=== PATIENT | female | born 1995 | race Caucasian/White ===

== ENCOUNTER 2024-09-12 10:33 | Emergency (ER) | payer MEDICARE, OTHER ==
[2024-09-12] MEDS: ACETAMINOPHEN TAB 500 MG TAB PO STA (10:51)
--- NOTE | 2024-09-12 10:51 | ED ---
General Adult HPI - General Chief complaint: Fall Stated complaint: fall Time Seen by Provider: 09/12/24 10:40 Source: patient, EMS, RN notes reviewed Mode of arrival: EMS Limitations: no limitations - History of Present Illness Initial comments: Patient is a 29-year-old female presenting to the emergency department from [place] secondary to a fall. Patient was sitting in a chair when it broke. Patient fell back and did strike the back of her head. No loss of consciousness. Only mild discomfort. No nausea or vomiting. No confusion. No weakness. Patient does not take blood thinners. Patient is at [place] secondary to cocaine use. Patient has been there for 2 days now. Patient does have some back discomfort however has chronic back discomfort. Patient originally denies any abdominal discomfort however states there is some lower abdominal/pelvic discomfort during exam. No vaginal bleeding or discharge - Related Data Allergies Allergy/AdvReac Type Severity Reaction Status Date / Time cephalexin [From Keflex] Allergy Swelling Verified 09/12/24 10:43 doxycycline Allergy Swelling Verified 09/12/24 10:43 nitrofurantoin Allergy Swelling Verified 09/12/24 10:43 [From Macrobid] Review of Systems ROS Statement: Those systems with pertinent positive or pertinent negative responses have been documented in the HPI. ROS Other: All systems not noted in ROS Statement are negative. Constitutional: Denies: fever Eyes: Denies: eye pain ENT: Denies: ear pain Respiratory: Denies: dyspnea Cardiovascular: Denies: chest pain Gastrointestinal: Reports: as per HPI Genitourinary: Denies: dysuria Musculoskeletal: Reports: back pain Neurological: Denies: weakness, numbness, paresthesias, confusion Past Medical History Past Medical History: Fibromyalgia, GERD/Reflux Additional Past Medical History / Comment(s): IBS Past Surgical History: No Surgical Hx Reported Smoking Status: Current every day smoker Past Alcohol Use History: None Reported Past Drug Use History: Cocaine, Marijuana General Exam Limitations: no limitations General appearance: alert, in no apparent distress Head exam: Present: atraumatic, normocephalic Eye exam: Present: normal appearance, PERRL, EOMI Neck exam: Present: normal inspection. Absent: tenderness Respiratory exam: Present: normal lung sounds bilaterally Cardiovascular Exam: Present: regular rate, normal rhythm, normal heart sounds GI/Abdominal exam: Present: soft, tenderness (Mild suprapubic tenderness). Absent: distended, guarding, rebound, rigid Extremities exam: Present: normal inspection, full ROM. Absent: tenderness Back exam: Present: normal inspection. Absent: tenderness, CVA tenderness (R), CVA tenderness (L), paraspinal tenderness, vertebral tenderness Neurological exam: Present: alert, CN II-XII intact. Absent: motor sensory deficit Expanded Neurological exam: Present: protecting the airway Speech: Present: fluid speech Cranial nerves: EOM's Intact: Normal Motor strength exam: RUE: 5, LUE: 5, RLE: 5, LLE: 5 Eye Response: (4) open spontaneously Motor Response: (6) obeys commands Verbal Response: (5) oriented Psychiatric exam: Present: normal affect, normal mood Skin exam: Present: normal color Course Vital Signs 09/12/24 10:37 Temperature 98.1 F Pulse Rate 65 Respiratory 16 Rate Blood Pressure 97/58 O2 Sat by Pulse 100 Oximetry Medical Decision Making - Medical Decision Making Was pt. sent in by a medical professional or institution (Dr. PA, TRIM CREW SUPERVISOR, urgent care, hospital, or [place] [facility] facility...) When possible be specific @ -Patient was sent from [place] Did you speak to anyone other than the patient for history (EMS, parent, family, police, friend...)? What history was obtained from this source @ -No Did you review nursing and triage notes (agree or disagree)? Why? @ -I reviewed and agree with nursing and triage notes Were old charts reviewed (outside hosp., previous admission, EMS record, old EKG, old radiological studies, urgent care reports/EKG's, [place] health care facility records)? Report findings @ -Chart reviewed from [place] Differential Diagnosis (chest pain, altered mental status, abdominal pain women, abdominal pain men, vaginal bleeding, weakness, fever, dyspnea, syncope, headac he, dizziness, GI bleed, back pain, seizure, CVA, palpatations, mental health, musculoskeletal)? @ -Differential Musculoskeletal Muscular strain, contusion, ligament sprain, fracture, arthritis, septic arthritis, bursitis, cellulitis, muscle spasm, nerve compression, DVT, arterial occlusion, herpes zoster, electrolyte abnormality, tumor.... This is not meant to be in all inclusive list EKG interpreted by me (3pts min.). @ -As above X-rays interpreted by me (1pt min.). @ -None done CT interpreted by me (1pt min.). @ -None done U/S interpreted by me (1pt. min.). @ -Ultrasound shows intrauterine What testing was considered but not performed or refused? (CT, X-rays, U/S, labs)? Why? @ -Considered additional imaging of the back however patient has no tenderness. Considered imaging of the brain however patient does not meet criteria, no neurological symptoms, no severe headache, no loss of consciousness. No nausea or vomiting. Normal exam. What meds were considered but not given or refused? Why? @ -None Did you discuss the management of the patient with other professionals (professionals i.e. , PA, TRIM CREW SUPERVISOR, lab, RT, psych nurse, social sciences professor, field marketing director, teacher, chief lending officer, protective services case worker)? Give summary @ -No Was smoking cessation discussed for >3mins.? @ -No Was critical care preformed (if so, how long)? @ -No Were there social determinants of health that impacted care today? How? (Homelessness, low income, unemployed, alcoholism, drug addiction, transportation, low edu. Level, literacy, decrease access to med. care, usp, rehab)? @ -No Was there de-escalation of care discussed even if they declined (Discuss DNR or withdrawal of care, Hospice)? DNR status @ -No What co-morbidities impacted this encounter? (DM, HTN, Smoking, COPD, CAD, Cancer, CVA, ARF, Chemo, Hep., AIDS, mental health diagnosis, sleep apnea, morbid obesity)? @ -History of being at rehab for cocaine use. Also recent current Was patient admitted / discharged? Hospital course, mention meds given and route, prescriptions, significant lab abnormalities, going to OR and other pertinent info. @ -Patient presents with a fall. Patient complains of some back discomfort and head injury. Patient has mild discomfort of her abdomen on exam, otherwise exam unremarkable. Ultrasound unremarkable. Patient will be discharged and recommended follow-up Undiagnosed new problem with uncertain prognosis? @ -No Drug Therapy requiring intensive monitoring for toxicity (Heparin, Nitro, Insulin, Cardizem)? @ -No Were any procedures done? @ -No Diagnosis/symptom? @ -Fall Acute, or Chronic, or Acute on Chronic? @ -Acute Uncomplicated (without systemic symptoms) or Complicated (systemic symptoms)? @ -Default Side effects of treatment? @ -No Exacerbation, Progression, or Severe Exacerbation? @ -No Poses a threat to life or bodily function? How? (Chest pain, [place], [place], pneumonia, PE, COPD, DKA, ARF, appy, cholecystitis, CVA, Diverticulitis, Homicidal, Suicidal, threat to staff... and all critical care pts) @ -No Disposition Clinical Impression: Fall, Head contusion, Pelvic pain Disposition: HOME SELF-CARE Condition: Stable Instructions (If sedation given, give patient instructions): Fall Prevention (ED), at 11 to 14 Weeks (ED) Additional Instructions: [id number] Tylenol as needed. Please do follow-up with primary care physician and SEW[employer]ER in the next couple of days for recheck. Return for confusion, weakness, persistent vomiting, increased pain, vaginal bleeding, worsening symptoms or any other concerns. Is patient prescribed a controlled substance at d/c from ED?: No Referrals: None,Stated [Primary Care Provider] - 1-2 days Lashay Ortiz DO [Doctor of Osteopathic Medicine] - 1-2 days Jeremías De Anda MD [STAFF PHYSICIAN] - 1-2 days Forms: PH Area PCPs Time of Disposition: 12:28
--- NOTE | 2024-09-12 11:50 | US ---
EXAMINATION TYPE: Ultrasound OB <= 14 week fetus DATE OF EXAM: 09/12/2024 11:13 AM COMPARISON: NONE CLINICAL INDICATION: Female, 29 years old with pain after history of fall; [facility] TECHNIQUE: Transabdominal (TA) with grayscale and color Doppler imaging including first trimester pre gnancy. FINDINGS: EXAM MEASUREMENTS: GESTATIONAL AGE / DATING Physician Established: Not yet established Dates by LMP: LMP unknown Dates by First Scan: No previous this is first scan Dates by Current Scan for: (12 weeks/5 days) EDC: 03/22/2025 MATERNAL ANATOMY Uterus: 10.4 x 7.3 x 8.2 cm Right Ovary: 3.0 x 3.5 x 2.9 cm Left Ovary: Obscured with bowel gas. Post CDS / Adnexa: wnl Presence of free fluid: no Presence of corpus luteal cyst: no Presence of subchorionic bleed: no GESTATION / SURVEY CRL: 0.63cm (12 weeks/5 days) Heart Rate: 139 bpm Rhythm: Normal IUP: Viable IUP Beta HcG (if available): Not available at this time IMPRESSION: 1. Single live intrauterine with gestational age of 12 weeks 5 days by CRL. 2. Complete survey recommended at 18-20 weeks. [facility], , 09/12/2024 11:48 AM
[2024-09-12 12:35] VITALS: RESP 18
[2024-09-12 13:09] VITALS: BP 111/68; PULSE 66; TEMP 98
== END 2024-09-12 13:07 | disposition home or self-care (01) ==
LOC: EC 10:33
DX: O9A.211 Injury, poisoning and certain other consequences of external causes complicating pregnancy, first trimester (principal); O26.891 Other specified pregnancy related conditions, first trimester; O99.331 Smoking (tobacco) complicating pregnancy, first trimester; S00.93XA Contusion of unspecified part of head, initial encounter; R10.2 Pelvic and perineal pain; G47.30 Sleep apnea, unspecified; F17.200 Nicotine dependence, unspecified, uncomplicated; Z88.1 Allergy status to other antibiotic agents; Z88.8 Allergy status to other drugs, medicaments and biological substances; Z3A.12 12 weeks gestation of pregnancy; Z68.36 Body mass index [BMI] 36.0-36.9, adult; W07.XXXA Fall from chair, initial encounter
CPT/HCPCS: 76801; 99284